=== PATIENT | male | born 1970 | race Caucasian/White ===

== ENCOUNTER → 2018-12-04 08:12 | Outpatient (CLI) | payer OTHER, SELFPAY ==
[2018-12-04 09:25] LABS: Alanine Aminotransferase 42 IU/L (21-72); Albumin 4.5 g/dL (3.5-5.0); Albumin Globulin Ratio 1.4 (1.0-2.8); Alkaline Phosphatase 53 U/L (38-126); Aspartate Aminotransferase 31 IU/L (17-59); BUN Creatinine Ratio 12.7 (6-22); Bilirubin Total 0.6 mg/dL (0.2-1.3); Blood Urea Nitrogen 14 mg/dL (9-20); Calcium 9.5 mg/dL (8.4-10.2); Carbon Dioxide 31 mmol/L (22-32); Chloride 100 mmol/L (98-107); Cholesterol 259 mg/dL (140-199); Estimated Glomerular Filt Rate > 60.0 mL/min (>60); Globulin 3.2 g/dL (1.7-4.1); Glucose 105 mg/dL (70-100); HDL Cholesterol 34 mg/dL (40-60); HEMOLYSIS < 15 (0-50); LDL Cholesterol Calculated 192 mg/dL (<100); Potassium 4.1 mmol/L (3.4-5.1); Sodium 140 mmol/L (137-145); Total Protein 7.7 g/dL (6.3-8.2); Triglycerides 166 mg/dL (35-150)
[2018-12-04 09:46] LABS: Free T4, Direct Thyroxine 1.18 ng/dL (0.78-2.19)
[2018-12-04 10:00] LABS: Thyroid Stimulating Hormone 2.83 uIU/mL (0.47-4.68)
== END ==
PROVIDERS: Family Provider Internal Medicine; PCP Internal Medicine; Visit Provider Internal Medicine
DX: E03.9 Hypothyroidism, unspecified (principal); E78.2 Mixed hyperlipidemia; I10 Essential (primary) hypertension
CPT/HCPCS: 36415; 80053; 80061; 84439; 84443

== ENCOUNTER → 2020-01-21 10:14 | Outpatient (CLI) | payer OTHER, SELFPAY ==
[2020-01-21 10:47] LABS: Add Manual Diff / Slide Review NO; Basophils Absolute Auto 0 /uL (0-100); Basophils Percent Auto 0.9 % (0-2); Eosinophils Absolute Auto 100 /uL (0-450); Eosinophils Percent Auto 2.7 % (2-4); Hematocrit 44.6 % (41-53); Hemoglobin 15.4 g/dL (13.5-17.5); Lymphocytes Absolute Auto 2100 /uL (1100-4500); Lymphocytes Percent Auto 44.8 % (25-40); Mean Corpuscular HGB Conc 34.4 % (30-36); Mean Corpuscular Hemoglobin 30.2 PG (26-34); Mean Corpuscular Volume 87.5 fL (80-100); Monocytes Absolute Auto 400 /uL (0-900); Monocytes Percent Auto 8.6 % (3-14); Neutrophils Absolute Auto 2000 /uL (1500-7000); Platelet Count 248 X10^3/uL (150-400); Red Cell Distribution Width 13.7 % (11.6-14.8); White Blood Cell Count 4.6 X10^3/uL (4.5-11.0)
[2020-01-21 10:57] LABS: Erythrocyte Sedimentation Rate 5 MM/HR (0-15)
[2020-01-21 11:22] LABS: Alanine Aminotransferase 46 IU/L (<50); Albumin 4.6 g/dL (3.5-5.0); Albumin Globulin Ratio 1.3 (1.0-2.8); Alkaline Phosphatase 67 U/L (38-126); Aspartate Aminotransferase 37 IU/L (17-59); BUN Creatinine Ratio 23.1 (6-22); Bilirubin Total 0.8 mg/dL (0.2-1.3); Blood Urea Nitrogen 18 mg/dL (9-20); Calcium 9.9 mg/dL (8.4-10.2); Carbon Dioxide 25 mmol/L (22-32); Chloride 104 mmol/L (98-107); Creatine Kinase 102 U/L (55-170); Estimated Glomerular Filt Rate > 60.0 mL/min (>60); Globulin 3.6 g/dL (1.7-4.1); Glucose 140 mg/dL (70-100); Potassium 4.5 mmol/L (3.4-5.1); Sodium 136 mmol/L (137-145); Total Protein 8.2 g/dL (6.3-8.2)
[2020-01-21 11:23] LABS: HEMOLYSIS < 15 (0-50)
[2020-01-21 12:46] LABS: Free T4, Direct Thyroxine 1.01 ng/dL (0.78-2.19)
[2020-01-21 13:00] LABS: Thyroid Stimulating Hormone 2.87 uIU/mL (0.47-4.68)
[2020-01-21 13:37] LABS: Folate > 20.0 ng/mL (2.76-20.0); Vitamin B12 506 pg/mL (239-931)
[2020-01-21 13:51] LABS: C-Reactive Protein Quant 0.7 mg/dL (<1.0)
[2020-01-23 13:08] LABS: ANA Screen, IFA Positive (.)
[2020-01-30 08:07] LABS: Acetylcholine Blocking AB 16 % (0-25); Acetylcholine Modulating AB <12 % (0-20); Acetylcholine Receptor Bind AB <0.03 nmol/L (0.00-0.24)
== END ==
PROVIDERS: Family Provider Internal Medicine; PCP Internal Medicine; Referring Provider Internal Medicine; Visit Provider Internal Medicine
DX: E03.9 Hypothyroidism, unspecified (principal); I10 Essential (primary) hypertension; M79.10 Myalgia, unspecified site; R53.1 Weakness; R60.9 Edema, unspecified
CPT/HCPCS: 36415; 80053; 82550; 82607; 82746; 83519; 84439; 84443; 85025; 85651; 86038; 86140

== ENCOUNTER → 2021-04-13 08:00 | Outpatient (CLI) | payer OTHER, SELFPAY ==
[2021-04-13 09:05] LABS: Alanine Aminotransferase 27 IU/L (<50); Albumin 4.1 g/dL (3.5-5.0); Albumin Globulin Ratio 1.6 (1.0-2.8); Alkaline Phosphatase 59 U/L (38-126); Aspartate Aminotransferase 26 IU/L (17-59); BUN Creatinine Ratio 24.4 (6-22); Bilirubin Total 0.7 mg/dL (0.2-1.3); Blood Urea Nitrogen 19 mg/dL (9-20); Calcium 9.6 mg/dL (8.4-10.2); Carbon Dioxide 26 mmol/L (22-32); Chloride 104 mmol/L (98-107); Cholesterol 285 mg/dL (140-199); Estimated Glomerular Filt Rate > 60.0 mL/min (>60); Globulin 2.6 g/dL (1.7-4.1); Glucose 105 mg/dL (70-100); HDL Cholesterol 40 mg/dL (40-60); HEMOLYSIS < 15 (0-50); LDL Cholesterol Calculated 203 mg/dL (<100); Potassium 4.8 mmol/L (3.4-5.1); Sodium 138 mmol/L (137-145); Total Protein 6.7 g/dL (6.3-8.2); Triglycerides 211 mg/dL (35-150)
[2021-04-13 09:21] LABS: Free T4, Direct Thyroxine 1.06 ng/dL (0.78-2.19)
[2021-04-13 09:35] LABS: Prostate Specific Antigen Scrn 1.54 ng/mL (0.1-4.0); Thyroid Stimulating Hormone 3.31 uIU/mL (0.47-4.68)
== END ==
PROVIDERS: Family Provider Internal Medicine; PCP Internal Medicine; Referring Provider Internal Medicine; Visit Provider Internal Medicine
DX: E03.9 Hypothyroidism, unspecified (principal); E78.2 Mixed hyperlipidemia; I10 Essential (primary) hypertension; Z12.5 Encounter for screening for malignant neoplasm of prostate
CPT/HCPCS: 36415; 80053; 80061; 84439; 84443; G0103

== ENCOUNTER → 2021-05-27 15:02 | Outpatient (CLI) | payer OTHER, SELFPAY ==
[2021-05-27 15:27] LABS: COVID19 -Nasal RAPID Negative (Negative)
== END ==
PROVIDERS: Family Provider Internal Medicine; PCP Internal Medicine; Visit Provider Physician Assistant
DX: Z20.822 Contact with and (suspected) exposure to COVID-19 (principal); R05 Cough; R09.81 Nasal congestion; R51.9 Headache, unspecified
CPT/HCPCS: 87635

== ENCOUNTER 2021-06-04 09:00 | Outpatient (RCR) | payer OTHER, SELFPAY ==
--- NOTE | 2021-04-15 16:44 | PT.OIE ---
Current Diagnoses Pain in left shoulder (04/15/21) Abnormal posture (04/15/21) Weakness (04/15/21) Past Medical History (Last Updated 11/20/18 @ 09:33 by Hugh Valdez MD) Acquired hypothyroidism Alcohol use disorder Essential hypertension Generalized anxiety disorder (12/02/16) Major depression in complete remission Mixed hyperlipidemia Peripheral edema (05/07/13) Past Surgical History (Last Updated 03/19/21 @ 10:36 by Hugh Valdez MD) S/P lumbar spinal fusion Visit Care Team Role Provider Type Hugh Valdez MD Attending Provider Physician Family Provider Primary Care Provider Referring Provider Specialty: Internal Medicine Address: [address] [place] [address], [address], [facility] Email: [email or web address] Physical Therapy Initial Evaluation PT-OP-A Visit Information Start: 04/14/21 13:55 Freq: Status: Active Protocol: Document 04/15/21 10:30 [facility] (Rec: 04/15/21 11:20 [facility] [id number]) Out-Patient Physical Therapy Visit Information Visit Information Visit Type Initial Evaluation Visit Start Time 10:35 Visit Stop Time 11:20 Total Visit Minutes 45 Visit Number 1 Number of JOB PRINTER Visits 0 PT-OP-B Current Condition Start: 04/14/21 13:55 Freq: Status: Active Protocol: Document 04/15/21 10:30 [facility] (Rec: 04/15/21 11:20 [facility] [id number]) Current Condition History of Current Condition Onset Date 6 months ago Current Complaints L shoulder History of Current Condition Pt reprots he has nver had trouble with his shoulder before then a week after his 1st COVID shot in Nov, he noticed it was painful when lifting weights and it has just gotten worse. Now his ROM is very restricted and has not been doing much. Pt is R handed. Pt notes he does a lot of things still but there is pain. ANything reaching out in front of him or overhead is painful. Pt reports his UT is pretty painful as well. Pt typically would golf a couple times a year but feels like there is no way he could do that. Prior Treatments and Tests none Treatment Goals Patient/Caregiver Goals return to wt lifting, back to where he was , be able to golf , be able to overhead and reaching activities especially house work (has to paint house and build deck) Personal Factors Other Personal Factors That May Effect neck pain, L4-5 fusion Therapy/Recovery PT-OP-C Subjective Start: 04/14/21 13:55 Freq: Status: Active Protocol: Document 04/15/21 10:30 [facility] (Rec: 04/15/21 11:20 [facility] [id number]) Patient Questionnaires Quick Dash- Upper Extremity Quick Dash UE Score 43.18 OP-PT Pain Assessment Location L shoulder Pain Location Details ant lat brachium & deep in socket , UT Intensity 4 Scale Used worst 10/10 Description Aching,Sharp,Tightness,With Movement Description- Other deep Frequency Constant Pain Duration really intense for 30 sec to min after movement Variations/Patterns pain in thumb region sometimes that feels related Other Pain Aggravating Factors getting dressed, reaching up, fwd,out,behind, lifting up Pain Alleviating Factors Cold Other Pain Alleviating Factors ibuprofen PT-OP-F Manual Assessment Start: 04/14/21 13:55 Freq: Status: Active Protocol: Document 04/15/21 10:30 [facility] (Rec: 04/15/21 11:20 [facility] [id number]) Manual Assessments Soft Tissue Assessment Soft Tissue Mobility Assessment L UT, LS, rhomboids LT, teres, infraspinatus, lats, pec tender & tight Joint Mobility Assessment Joint Mobility Assessment L 1st rib elevated PT-OP-J Posture/Palpation/Skin Start: 04/14/21 13:55 Freq: Status: Active Protocol: Document 04/15/21 10:30 [facility] (Rec: 04/15/21 11:20 [facility] [id number]) Posture Evaluation [facility] Postural Classification System [facility] Postural Classifications Posterior/Anterior Elbow Flexion Test 1 Comments Posture Comments L>R scap protraction, IR of shoulder & fwd rounding PT-OP-K Range of Motion Start: 04/14/21 13:55 Freq: Status: Active Protocol: Document 04/15/21 10:30 [facility] (Rec: 04/15/21 11:20 [facility] [id number]) Shoulder Goniometric Range of Motion Shoulder Left Passive Flexion 130 Abduction 82 External Rotation at 45 degrees 42 Abduction Internal Rotation 70 Comments IR at scap plane Right Active Flexion 155 Extension 70 Abduction 180 External Rotation at 90 degrees 121 Abduction External Rotation at 0 degrees Abduction 60 Internal Rotation Behind Back (text) T7 Left Active Flexion 74 Extension 44 Abduction 65 External Rotation at 0 degrees Abduction 31 Internal Rotation Behind Back (text) sacrum PT-OP-L Special Tests Start: 04/14/21 13:55 Freq: Status: Active Protocol: Document 04/15/21 10:30 [facility] (Rec: 04/15/21 11:20 [facility] [id number]) Special Tests Shoulder Special Tests Empty Can Test Results positive L Neer Impingement Comments positive L Speed's Biceps Test Results positive L [place] Test Test Results neg L Yergason's Biceps Test Results neg L Sulcus Test Results neg L Garcia Sunday Impingement Test Results positive L AC Joint Compression Test Results neg L Neural Special Tests- Upper Body Median Nerve Tension Comments neg but unable to go through full range d/t shoulder mobility Radial Nerve Tension Comments neg Ulnar Nerve Tension Comments neg PT-OP-M Strength Start: 04/14/21 13:55 Freq: Status: Active Protocol: Document 04/15/21 10:30 [facility] (Rec: 04/15/21 11:20 [facility] [id number]) Shoulder Strength Shoulder Manual Muscle Testing Right Flexion 5 Normal Extension 5 Normal Abduction (C5) 5 Normal Adduction 5 Normal External Rotation 5 Normal Internal Rotation 5 Normal Horizontal Abduction 5 Normal Horizontal Adduction 5 Normal Left Flexion 3+ Fair+ Extension 3+ Fair+ Abduction (C5) 2- Poor- External Rotation 4- Good- Internal Rotation 5 Normal Comments pain w/all but IR PT-OP-Q Treatments Start: 04/14/21 13:55 Freq: Status: Active Protocol: Document 04/15/21 10:30 [facility] (Rec: 04/15/21 13:05 [facility] [id number]) Therapeutic Exercises Sitting Exercises retraction Sitting Exercise Name scap scap/dep Side bilateral Reps/Minutes 10 Standing Exercises wall posture Standing Exercise Name wall roll up w/focus on neutral lumbar spine w/B shoudler ext to wall Reps/Minutes 1 min Self-Care/Home Management Treatment Education Other Education edu re: anatomy of shoulder and shoulder mechanics. Discussed impingement vs possible frozen shoulder and prognosis. DIscussed importance of posture and scap & thoracic positioning. PT-OP-T Assessment and Plan Start: 04/14/21 13:55 Freq: Status: Active Protocol: Document 04/15/21 10:30 [facility] (Rec: 04/15/21 11:20 [facility] [id number]) Physical Therapy Assessment Rehab Potential Rehabilitation Potential Good Evaluation Complexity Number of Personal Factors/Comorbidities 1-2 Number of Body Systems Impaired 4 or More Clinical Presentation at Evaluation Evolving Impairments Impairments Activity Tolerance,Functional Activities,Functional Mobility ,Pain,Posture,ROM,Soft Tissue Mobility,Strength Goals activities Short Term Goal (STG) pt will be able to get dressed without increased pain STG Duration 05/15/21 Setter Out Goal (LTG) Pt will be able to return to full lifting program along with 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 LTG Duration 06/15/21 ROM Short Term Goal (STG) Pt will improve AROM on L side in all planes by 15 deg to allow for greater ease w/ADLs. STG Duration 05/15/21 Group Home Goal (LTG) Pt will have full AROM of L shoulder without pain in order to allow pt to return to all typical activities without pain. LTG Duration 06/15/21 strength Short Term Goal (STG) Pt will be indep with HEP. STG Duration 05/15/21 Group Home Goal (LTG) Pt will score at 5/5 w/EFT and w/all shoulder MMT in order to show improved ability to do ADLs & house work. LTG Duration 06/15/21 Quick DASH Impairment 43.18 Short Term Goal (STG) Pt will improve quick DASH score to no higher than 25 to show improved functional ability. STG Duration 05/15/21 Group Home Goal (LTG) Pt will improve quick DASH score to no higher than 5 to show improved functional ability. LTG Duration 06/15/21 Assessment Summary Assessment Pt presents with L shoulder pain starting about 6 months ago around time of 1st COVID shot. He is unsure if it is fully correlated, but had soreness from shot that never went away w/progressive difficulty w/overhead mobility w/L shoulder. W/PROM, pt has empty end feel as he reports pain before stiff or hard end feel is felt, which makes it less likely that pt has adhesive capsulitis, but does show positive with multiple impingement tests and w/empty can testing, indicating possible L shoulder impingement syndrome. He has excessive elevation of scap with movement and signficiant pain w/overhead mobility being the largest limit. He has protracted and fwd rounded shoulder position and was educated on importance of imrpving this as it can be a major contributitor to pain. He would benefit from skilled PT to work on progressive ROM, strengthening and functional mobility exercises along w/ manual treatment and modalities to dec pain and improve function. Physical Therapy Plan Frequency and Duration Frequency of Treatment 1-2x/week Duration of Treatment 2 months Plan of Care Start Date 04/15/21 Plan of Care End Date 06/15/21 Therapeutic Interventions Therapeutic Interventions Aquatic Therapy,Home Exercise Program,Joint Mobilizations, Manual Therapy,Neuromuscular Re-education,Patient/Caregiver Education,Self-Care/Home Management,Soft Tissue Mobilization,Taping, Therapeutic Activities, Therapeutic Exercises Modalities Cold Pack/Ice Massage,Electric Stimulation,Hot Packs, Infrared Therapy,Ultrasound Next Visit Focus/Plan Next Note Type Treatment Note Next Visit Plan Shoulder rows, REYNALDOOM w/estefania, tbar, [facility] to L UT, LS, pec, GH & scap jt mobs
--- NOTE | 2021-04-15 16:44 | PT.OPPOC ---
Physical, Occupational & Speech Therapy At [facility] Current Diagnoses Pain in left shoulder (04/15/21) Abnormal posture (04/15/21) Weakness (04/15/21) Visit Care Team Role Provider Type Hugh Valdez MD Attending Provider Physician Family Provider Primary Care Provider Referring Provider Specialty: Internal Medicine Address: [address] [place] [address], [address], [facility] Email: [email or web address] Plan Of Care PT-OP-T Assessment and Plan Start: 04/14/21 13:55 Freq: Status: Active Protocol: Document 04/15/21 10:30 [facility] (Rec: 04/15/21 11:20 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 LTG Duration 06/15/21 ROM Short Term Goal (STG) Pt will improve AROM on L side in all planes by 15 deg to allow for greater ease w/ADLs. STG Duration 05/15/21 Skilled Nursing Goal (LTG) Pt will have full AROM of L shoulder without pain in order to allow pt to return to all typical activities without pain. LTG Duration 06/15/21 strength Short Term Goal (STG) Pt will be indep with HEP. STG Duration 05/15/21 Skilled Nursing Goal (LTG) Pt will score at 5/5 w/EFT and w/all shoulder MMT in order to show improved ability to do ADLs & house work. LTG Duration 06/15/21 Quick DASH Impairment 43.18 Short Term Goal (STG) Pt will improve quick DASH score to no higher than 25 to show improved functional ability. STG Duration 05/15/21 Gatehouse Attendant Goal (LTG) Pt will improve quick DASH score to no higher than 5 to show improved functional ability. LTG Duration 06/15/21 Assessment Summary Assessment Pt presents with L shoulder pain starting about 6 months ago around time of 1st COVID shot. He is unsure if it is fully correlated, but had soreness from shot that never went away w/progressive difficulty w/overhead mobility w/L shoulder. W/PROM, pt has empty end feel as he reports pain before stiff or hard end feel is felt, which makes it less likely that pt has adhesive capsulitis, but does show positive with multiple impingement tests and w/empty can testing, indicating possible L shoulder impingement syndrome. He has excessive elevation of scap with movement and signficiant pain w/overhead mobility being the largest limit. He has protracted and fwd rounded shoulder position and was educated on importance of imrpving this as it can be a major contributitor to pain. He would benefit from skilled PT to work on progressive ROM, strengthening and functional mobility exercises along w/ manual treatment and modalities to dec pain and improve function. Physical Therapy Plan Frequency and Duration Frequency of Treatment 1-2x/week Duration of Treatment 2 months Plan of Care Start Date 04/15/21 Plan of Care End Date 06/15/21 Therapeutic Interventions Therapeutic Interventions Aquatic Therapy,Home Exercise Program,Joint Mobilizations, Manual Therapy,Neuromuscular Re-education,Patient/Caregiver Education,Self-Care/Home Management,Soft Tissue Mobilization,Taping, Therapeutic Activities, Therapeutic Exercises Modalities Cold Pack/Ice Massage,Electric Stimulation,Hot Packs, Infrared Therapy,Ultrasound Next Visit Focus/Plan Next Note Type Treatment Note Next Visit Plan Shoulder rows, AAROM w/pully, tbar, [facility] to L UT, LS, pec, GH & scap jt mobs Plan of Care Dates Plan of Care Start Date 04/15/21 Plan of Care End Date 06/15/21 Electronically Signed by: Anupama Rojo, PT 04/15/21 [id number] Please Sign and Return: I have reviewed this Plan of Care and certify that the skilled therapy services above are required to meet the patient?s needs. Physician Signature Date Printed Name and Credentials Clinical Instructor Signature Printed Name and Credentials
--- NOTE | 2021-04-19 18:34 | PT.OTN ---
Current Diagnoses Pain in left shoulder (04/19/21) Abnormal posture (04/19/21) Weakness (04/19/21) Physical Therapy Treatment Note PT-OP-A Visit Information Start: 04/14/21 13:55 Freq: Status: Active Protocol: Document 04/19/21 16:48 [facility] (Rec: 04/19/21 18:33 [facility] [id number]) Out-Patient Physical Therapy Visit Information Visit Information Visit Type Treatment Note Visit Start Time 16:52 Visit Stop Time 17:39 Total Visit Minutes 47 Visit Number 2 Number of TROMMEL TENDER Visits 0 PT-OP-B Current Condition Start: 04/14/21 13:55 Freq: Status: Active Protocol: Document 04/15/21 10:30 [facility] (Rec: 04/15/21 11:20 [facility] [id number]) Current Condition History of Current Condition Onset Date 6 months ago Current Complaints L shoulder History of Current Condition Pt reprots he has nver had trouble with his shoulder before then a week after his 1st COVID shot in Nov, he noticed it was painful when lifting weights and it has just gotten worse. Now his ROM is very restricted and has not been doing much. Pt is R handed. Pt notes he does a lot of things still but there is pain. ANything reaching out in front of him or overhead is painful. Pt reports his UT is pretty painful as well. Pt typically would golf a couple times a year but feels like there is no way he could do that. Prior Treatments and Tests none Treatment Goals Patient/Caregiver Goals return to wt lifting, back to where he was , be able to golf , be able to overhead and reaching activities especially house work (has to paint house and build deck) Personal Factors Other Personal Factors That May Effect neck pain, L4-5 fusion Therapy/Recovery PT-OP-C Subjective Start: 04/14/21 13:55 Freq: Status: Active Protocol: Document 04/19/21 16:48 [facility] (Rec: 04/19/21 18:33 [facility] [id number]) OP-PT Subjective Patient Comments Patient Comments compliance w/ exercises Patient Reported Progress Same PT-OP-F Manual Assessment Start: 04/14/21 13:55 Freq: Status: Active Protocol: Document 04/15/21 10:30 [facility] (Rec: 04/15/21 11:20 [facility] [id number]) Manual Assessments Soft Tissue Assessment Soft Tissue Mobility Assessment L UT, LS, rhomboids LT, teres, infraspinatus, lats, pec tender & tight Joint Mobility Assessment Joint Mobility Assessment L 1st rib elevated PT-OP-J Posture/Palpation/Skin Start: 04/14/21 13:55 Freq: Status: Active Protocol: Document 04/15/21 10:30 [facility] (Rec: 04/15/21 11:20 [facility] [id number]) Posture Evaluation [facility] Postural Classification System [facility] Postural Classifications Posterior/Anterior Elbow Flexion Test 1 Comments Posture Comments L>R scap protraction, IR of shoulder & fwd rounding PT-OP-K Range of Motion Start: 04/14/21 13:55 Freq: Status: Active Protocol: Document 04/15/21 10:30 [facility] (Rec: 04/15/21 11:20 [facility] [id number]) Shoulder Goniometric Range of Motion Shoulder Left Passive Flexion 130 Abduction 82 External Rotation at 45 degrees 42 Abduction Internal Rotation 70 Comments IR at scap plane Right Active Flexion 155 Extension 70 Abduction 180 External Rotation at 90 degrees 121 Abduction External Rotation at 0 degrees Abduction 60 Internal Rotation Behind Back (text) T7 Left Active Flexion 74 Extension 44 Abduction 65 External Rotation at 0 degrees Abduction 31 Internal Rotation Behind Back (text) sacrum PT-OP-L Special Tests Start: 04/14/21 13:55 Freq: Status: Active Protocol: Document 04/15/21 10:30 [facility] (Rec: 04/15/21 11:20 [facility] [id number]) Special Tests Shoulder Special Tests Empty Can Test Results positive L Neer Impingement Comments positive L Speed's Biceps Test Results positive L [place] Test Test Results neg L Yergason's Biceps Test Results neg L Sulcus Test Results neg L Garcia Sunday Impingement Test Results positive L AC Joint Compression Test Results neg L Neural Special Tests- Upper Body Median Nerve Tension Comments neg but unable to go through full range d/t shoulder mobility Radial Nerve Tension Comments neg Ulnar Nerve Tension Comments neg PT-OP-M Strength Start: 04/14/21 13:55 Freq: Status: Active Protocol: Document 04/15/21 10:30 [facility] (Rec: 04/15/21 11:20 [facility] [id number]) Shoulder Strength Shoulder Manual Muscle Testing Right Flexion 5 Normal Extension 5 Normal Abduction (C5) 5 Normal Adduction 5 Normal External Rotation 5 Normal Internal Rotation 5 Normal Horizontal Abduction 5 Normal Horizontal Adduction 5 Normal Left Flexion 3+ Fair+ Extension 3+ Fair+ Abduction (C5) 2- Poor- External Rotation 4- Good- Internal Rotation 5 Normal Comments pain w/all but IR PT-OP-Q Treatments Start: 04/14/21 13:55 Freq: Status: Active Protocol: Document 04/19/21 16:48 [facility] (Rec: 04/19/21 18:33 [facility] [id number]) Therapeutic Exercises Supine Exercises AAROm Supine Exercise Name tbar: 1.chest press to flex 2. ER at side Side left Reps/Minutes 10 ea Sitting Exercises pullys Sitting Exercise Name flex, scaption, abd Side left Reps/Minutes 15 Comments AAROM retraction Sitting Exercise Name scap scap/dep Side bilateral Reps/Minutes 10 Standing Exercises walk aways Standing Exercise Name 1.flex & abd from counter 2. ER at wall Side left Reps/Minutes 5 sec x6 ea wall posture Standing Exercise Name wall roll up w/focus on neutral lumbar spine w/B shoudler ext to wall Reps/Minutes 1 min Manual Therapy Treatment Soft Tissue Mobilization UT Body Location L UT, LS, scalenes Mobilization Type Rolling,Strumming Intensity/Depth Moderate pec Body Location L Mobilization Type Rolling,Strumming Intensity/Depth Moderate Body Position Supine Joint Mobilizations GH Joint L Direction post glide, inf glide, distraction FM PT-OP-T Assessment and Plan Start: 04/14/21 13:55 Freq: Status: Active Protocol: Document 04/19/21 16:48 [facility] (Rec: 04/19/21 18:33 [facility] [id number]) Physical Therapy Assessment Goals activities Short Term Goal (STG) pt will be able to get dressed without increased pain STG Duration 05/15/21 Care Home Goal (LTG) Pt will be able to return to full lifting program along with 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 LTG Duration 06/15/21 ROM Short Term Goal (STG) Pt will improve AROM on L side in all planes by 15 deg to allow for greater ease w/ADLs. STG Duration 05/15/21 Care Home Goal (LTG) Pt will have full AROM of L shoulder without pain in order to allow pt to return to all typical activities without pain. LTG Duration 06/15/21 strength Short Term Goal (STG) Pt will be indep with HEP. STG Duration 05/15/21 Morning News Anchor Goal (LTG) Pt will score at 5/5 w/EFT and w/all shoulder MMT in order to show improved ability to do ADLs & house work. LTG Duration 06/15/21 Quick DASH Impairment 43.18 Short Term Goal (STG) Pt will improve quick DASH score to no higher than 25 to show improved functional ability. STG Duration 05/15/21 Care Home Goal (LTG) Pt will improve quick DASH score to no higher than 5 to show improved functional ability. LTG Duration 06/15/21 Assessment Summary Assessment Pt was showing about 135 deg AAROM with walk aways and still has empty end feel with range of motion which dec likelihood of adhesive capsulitis. He tolerated pully and walk away exercseis more than tbar exercises and was given all exercises as options to work on ROM ane encouraged to do 2x/day along w/ice after exercises to dec irritation. Physical Therapy Plan Frequency and Duration Frequency of Treatment 1-2x/week Duration of Treatment 2 months Plan of Care Start Date 04/15/21 Plan of Care End Date 06/15/21 Next Visit Focus/Plan Next Note Type Treatment Note Next Visit Plan review exercies. shoulder rows , try UBE, manual for soft tissue, GH & AC & scap joint mobs
--- NOTE | 2021-04-27 10:40 | PT.OTN ---
Current Diagnoses Pain in left shoulder (04/27/21) Abnormal posture (04/27/21) Weakness (04/27/21) Physical Therapy Treatment Note PT-OP-A Visit Information Start: 04/14/21 13:55 Freq: Status: Active Protocol: Document 04/27/21 09:00 OF (Rec: 04/27/21 10:40 OF [email or web address]) Out-Patient Physical Therapy Visit Information Visit Information Visit Type Treatment Note Visit Start Time 08:15 Visit Stop Time 09:00 Total Visit Minutes 45 Visit Number 3 Precautions Precautions 50$ copay PT-OP-B Current Condition Start: 04/14/21 13:55 Freq: Status: Active Protocol: Document 04/15/21 10:30 [facility] (Rec: 04/15/21 11:20 [facility] [id number]) Current Condition History of Current Condition Onset Date 6 months ago Current Complaints L shoulder History of Current Condition Pt reprots he has nver had trouble with his shoulder before then a week after his 1st COVID shot in Nov, he noticed it was painful when lifting weights and it has just gotten worse. Now his ROM is very restricted and has not been doing much. Pt is R handed. Pt notes he does a lot of things still but there is pain. ANything reaching out in front of him or overhead is painful. Pt reports his UT is pretty painful as well. Pt typically would golf a couple times a year but feels like there is no way he could do that. Prior Treatments and Tests none Treatment Goals Patient/Caregiver Goals return to wt lifting, back to where he was , be able to golf , be able to overhead and reaching activities especially house work (has to paint house and build deck) Personal Factors Other Personal Factors That May Effect neck pain, L4-5 fusion Therapy/Recovery PT-OP-C Subjective Start: 04/14/21 13:55 Freq: Status: Active Protocol: Document 04/27/21 09:00 OF (Rec: 04/27/21 10:40 OF [email or web address]) OP-PT Subjective Patient Comments Patient Comments pt states pain has lessened, shldr continues to feel tight Patient Reported Progress Improving OP-PT Pain Assessment Pain Assessment Grid Paper Pain Assessment Grid Completed No Location L shoulder Pain Location Details deep in socket , UT Intensity 4 Scale Used worst 10/10 Description Aching,Sharp,Tightness,With Movement Description- Other deep Frequency Daily Pain Duration really intense for 30 sec to min after movement Other Pain Aggravating Factors getting dressed, reaching up, fwd,out,behind, lifting up Pain Alleviating Factors Cold Other Pain Alleviating Factors ibuprofen PT-OP-F Manual Assessment Start: 04/14/21 13:55 Freq: Status: Active Protocol: Document 04/15/21 10:30 [facility] (Rec: 04/15/21 11:20 [facility] [id number]) Manual Assessments Soft Tissue Assessment Soft Tissue Mobility Assessment L UT, LS, rhomboids LT, teres, infraspinatus, lats, pec tender & tight Joint Mobility Assessment Joint Mobility Assessment L 1st rib elevated PT-OP-J Posture/Palpation/Skin Start: 04/14/21 13:55 Freq: Status: Active Protocol: Document 04/15/21 10:30 [facility] (Rec: 04/15/21 11:20 [facility] [id number]) Posture Evaluation [facility] Postural Classification System [facility] Postural Classifications Posterior/Anterior Elbow Flexion Test 1 Comments Posture Comments L>R scap protraction, IR of shoulder & fwd rounding PT-OP-K Range of Motion Start: 04/14/21 13:55 Freq: Status: Active Protocol: Document 04/15/21 10:30 [facility] (Rec: 04/15/21 11:20 [facility] [id number]) Shoulder Goniometric Range of Motion Shoulder Left Passive Flexion 130 Abduction 82 External Rotation at 45 degrees 42 Abduction Internal Rotation 70 Comments IR at scap plane Right Active Flexion 155 Extension 70 Abduction 180 External Rotation at 90 degrees 121 Abduction External Rotation at 0 degrees Abduction 60 Internal Rotation Behind Back (text) T7 Left Active Flexion 74 Extension 44 Abduction 65 External Rotation at 0 degrees Abduction 31 Internal Rotation Behind Back (text) sacrum PT-OP-L Special Tests Start: 04/14/21 13:55 Freq: Status: Active Protocol: Document 04/15/21 10:30 [facility] (Rec: 04/15/21 11:20 [facility] [id number]) Special Tests Shoulder Special Tests Empty Can Test Results positive L Neer Impingement Comments positive L Speed's Biceps Test Results positive L [place] Test Test Results neg L Yergason's Biceps Test Results neg L Sulcus Test Results neg L Garcia Sunday Impingement Test Results positive L AC Joint Compression Test Results neg L Neural Special Tests- Upper Body Median Nerve Tension Comments neg but unable to go through full range d/t shoulder mobility Radial Nerve Tension Comments neg Ulnar Nerve Tension Comments neg PT-OP-M Strength Start: 04/14/21 13:55 Freq: Status: Active Protocol: Document 04/15/21 10:30 [facility] (Rec: 04/15/21 11:20 [facility] [id number]) Shoulder Strength Shoulder Manual Muscle Testing Right Flexion 5 Normal Extension 5 Normal Abduction (C5) 5 Normal Adduction 5 Normal External Rotation 5 Normal Internal Rotation 5 Normal Horizontal Abduction 5 Normal Horizontal Adduction 5 Normal Left Flexion 3+ Fair+ Extension 3+ Fair+ Abduction (C5) 2- Poor- External Rotation 4- Good- Internal Rotation 5 Normal Comments pain w/all but IR PT-OP-Q Treatments Start: 04/14/21 13:55 Freq: Status: Active Protocol: Document 04/27/21 09:00 OF (Rec: 04/27/21 10:40 OF [email or web address]) Therapeutic Exercises Supine Exercises AAROm Supine Exercise Name tbar: 1.chest press to flex 2. ER at side Side left Reps/Minutes 2x10 Sitting Exercises UT Sitting Exercise Name upper trap stretch Side bilateral Reps/Minutes [id number] rows Sitting Exercise Name rows Side bilateral Resistance level 2 tb Comments 3x10, cues for UT relaxed, proper recruitment for lower trap and rhomboids pullys Sitting Exercise Name flex, scaption, abd Side left Reps/Minutes 2x15 Comments AAROM retraction Sitting Exercise Name scap scap/dep Side bilateral Reps/Minutes 10 Standing Exercises walk aways Standing Exercise Name 1.flex & abd from counter 2. ER at wall Side left Reps/Minutes 5 sec x6 ea Manual Therapy Treatment Soft Tissue Mobilization UT Body Location L UT, LS, scalenes Mobilization Type Rolling,Strumming Intensity/Depth Moderate pec Body Location L Mobilization Type Rolling,Strumming Intensity/Depth Moderate Body Position Supine Joint Mobilizations GH Joint L Direction post glide, inf glide, distraction FM Grade II Body Position Supine Self-Care/Home Management Treatment Education Patient Education Body Mechanics,Home Exercise Program,Pain Management PT-OP-T Assessment and Plan Start: 04/14/21 13:55 Freq: Status: Active Protocol: Document 04/27/21 09:00 OF (Rec: 04/27/21 10:40 OF [email or web address]) Physical Therapy Assessment Rehab Potential Rehabilitation Potential Good Evaluation Complexity Number of Personal Factors/Comorbidities 1-2 Number of Body Systems Impaired 1-2 Progress Towards Goals Progress Towards Goals Progressing Toward Goals Assessment Summary Assessment He tolerated pully and walk away exercises today. He reports HEP as instructed and is aware of adding rows, UT stretch
--- NOTE | 2021-05-03 16:38 | PT.OTN ---
Current Diagnoses Pain in left shoulder (05/03/21) Abnormal posture (05/03/21) Weakness (05/03/21) Physical Therapy Treatment Note PT-OP-A Visit Information Start: 04/14/21 13:55 Freq: Status: Active Protocol: Document 05/03/21 11:59 [facility] (Rec: 05/03/21 12:04 [facility] [email or web address]) Out-Patient Physical Therapy Visit Information Visit Information Visit Type Treatment Note Visit Start Time 08:18 Visit Stop Time 09:00 Total Visit Minutes 42 Visit Number 4 Number of BRONZE PLATER Visits 0 PT-OP-B Current Condition Start: 04/14/21 13:55 Freq: Status: Active Protocol: Document 04/15/21 10:30 [facility] (Rec: 04/15/21 11:20 [facility] [id number]) Current Condition History of Current Condition Onset Date 6 months ago Current Complaints L shoulder History of Current Condition Pt reprots he has nver had trouble with his shoulder before then a week after his 1st COVID shot in Nov, he noticed it was painful when lifting weights and it has just gotten worse. Now his ROM is very restricted and has not been doing much. Pt is R handed. Pt notes he does a lot of things still but there is pain. ANything reaching out in front of him or overhead is painful. Pt reports his UT is pretty painful as well. Pt typically would golf a couple times a year but feels like there is no way he could do that. Prior Treatments and Tests none Treatment Goals Patient/Caregiver Goals return to wt lifting, back to where he was , be able to golf , be able to overhead and reaching activities especially house work (has to paint house and build deck) Personal Factors Other Personal Factors That May Effect neck pain, L4-5 fusion Therapy/Recovery PT-OP-C Subjective Start: 04/14/21 13:55 Freq: Status: Active Protocol: Document 05/03/21 11:59 [facility] (Rec: 05/03/21 12:04 [facility] [email or web address]) OP-PT Subjective Patient Comments Patient Comments Pt reports he felt like he was doing better w/his shoulder but it got irritated the last couple days PT-OP-F Manual Assessment Start: 04/14/21 13:55 Freq: Status: Active Protocol: Document 04/15/21 10:30 [facility] (Rec: 04/15/21 11:20 [facility] [id number]) Manual Assessments Soft Tissue Assessment Soft Tissue Mobility Assessment L UT, LS, rhomboids LT, teres, infraspinatus, lats, pec tender & tight Joint Mobility Assessment Joint Mobility Assessment L 1st rib elevated PT-OP-J Posture/Palpation/Skin Start: 04/14/21 13:55 Freq: Status: Active Protocol: Document 04/15/21 10:30 [facility] (Rec: 04/15/21 11:20 [facility] [id number]) Posture Evaluation [facility] Postural Classification System [facility] Postural Classifications Posterior/Anterior Elbow Flexion Test 1 Comments Posture Comments L>R scap protraction, IR of shoulder & fwd rounding PT-OP-K Range of Motion Start: 04/14/21 13:55 Freq: Status: Active Protocol: Document 04/15/21 10:30 [facility] (Rec: 04/15/21 11:20 [facility] [id number]) Shoulder Goniometric Range of Motion Shoulder Left Passive Flexion 130 Abduction 82 External Rotation at 45 degrees 42 Abduction Internal Rotation 70 Comments IR at scap plane Right Active Flexion 155 Extension 70 Abduction 180 External Rotation at 90 degrees 121 Abduction External Rotation at 0 degrees Abduction 60 Internal Rotation Behind Back (text) T7 Left Active Flexion 74 Extension 44 Abduction 65 External Rotation at 0 degrees Abduction 31 Internal Rotation Behind Back (text) sacrum PT-OP-L Special Tests Start: 04/14/21 13:55 Freq: Status: Active Protocol: Document 04/15/21 10:30 [facility] (Rec: 04/15/21 11:20 [facility] [id number]) Special Tests Shoulder Special Tests Empty Can Test Results positive L Neer Impingement Comments positive L Speed's Biceps Test Results positive L [place] Test Test Results neg L Yergason's Biceps Test Results neg L Sulcus Test Results neg L Garcia Sunday Impingement Test Results positive L AC Joint Compression Test Results neg L Neural Special Tests- Upper Body Median Nerve Tension Comments neg but unable to go through full range d/t shoulder mobility Radial Nerve Tension Comments neg Ulnar Nerve Tension Comments neg PT-OP-M Strength Start: 04/14/21 13:55 Freq: Status: Active Protocol: Document 04/15/21 10:30 [facility] (Rec: 04/15/21 11:20 [facility] [id number]) Shoulder Strength Shoulder Manual Muscle Testing Right Flexion 5 Normal Extension 5 Normal Abduction (C5) 5 Normal Adduction 5 Normal External Rotation 5 Normal Internal Rotation 5 Normal Horizontal Abduction 5 Normal Horizontal Adduction 5 Normal Left Flexion 3+ Fair+ Extension 3+ Fair+ Abduction (C5) 2- Poor- External Rotation 4- Good- Internal Rotation 5 Normal Comments pain w/all but IR PT-OP-Q Treatments Start: 04/14/21 13:55 Freq: Status: Active Protocol: Document 05/03/21 11:59 [facility] (Rec: 05/03/21 12:04 [facility] [email or web address]) Therapeutic Exercises Sitting Exercises pullys Sitting Exercise Name flex, scaption, abd Side left Reps/Minutes 15 Comments AAROM Manual Therapy Treatment Soft Tissue Mobilization UT Body Location L UT, LS, scalenes Mobilization Type Rolling,Strumming Intensity/Depth Moderate Joint Mobilizations ribs Comments 1. 1st rib inf glide L FM 2. rib 5 inf glide FM w/ant elevation/post dep AC Joint gapping FM L GH Joint L Direction post glide, inf glide, distraction FM Grade II Body Position Supine Neuro Re-Education Treatment Other Activities PNF Details post dep Comments 1. rhythmic initiation L 2. sustained holds scap progressed to w/UE 3. 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 LTG Duration 06/15/21 ROM Short Term Goal (STG) Pt will improve AROM on L side in all planes by 15 deg to allow for greater ease w/ADLs. STG Duration 05/15/21 [facility] Goal (LTG) Pt will have full AROM of L shoulder without pain in order to allow pt to return to all typical activities without pain. LTG Duration 06/15/21 strength Short Term Goal (STG) Pt will be indep with HEP. STG Duration 05/15/21 [employer] Goal (LTG) Pt will score at 5/5 w/EFT and w/all shoulder MMT in order to show improved ability to do ADLs & house work. LTG Duration 06/15/21 Quick DASH Impairment 43.18 Short Term Goal (STG) Pt will improve quick DASH score to no higher than 25 to show improved functional ability. STG Duration 05/15/21 [employer]amic [employer] Goal (LTG) Pt will improve quick DASH score to no higher than 5 to show improved functional ability. LTG Duration 06/15/21 Assessment Summary Assessment Pt is showing some improvement in motion and it imrpvoes with manual treatment. he did have significant tightness in scalenes today that were very pianful to touch but had improved post dep after manual treatmetn of this along w/ joint mobilizations. Physical Therapy Plan Frequency and Duration Frequency of Treatment 1-2x/week Duration of Treatment 2 months Plan of Care Start Date 04/15/21 Plan of Care End Date 06/15/21 Next Visit Focus/Plan Next Note Type Treatment Note Next Visit Plan UE & manual for mobility & PNF , foam roll for opening, prop assessment of scap & ribcage mobility
--- NOTE | 2021-05-14 09:50 | PT.OTN ---
Current Diagnoses Pain in left shoulder (05/14/21) Abnormal posture (05/14/21) Weakness (05/14/21) Physical Therapy Treatment Note PT-OP-A Visit Information Start: 04/14/21 13:55 Freq: Status: Active Protocol: Document 05/14/21 09:41 [facility] (Rec: 05/14/21 09:50 OF [id number]) Out-Patient Physical Therapy Visit Information Visit Information Visit Type Treatment Note Visit Start Time 08:58 Visit Stop Time 09:40 Total Visit Minutes 42 Visit Number 5 Precautions Precautions 50$ copay PT-OP-B Current Condition Start: 04/14/21 13:55 Freq: Status: Active Protocol: Document 04/15/21 10:30 [facility] (Rec: 04/15/21 11:20 [facility] [id number]) Current Condition History of Current Condition Onset Date 6 months ago Current Complaints L shoulder History of Current Condition Pt reprots he has nver had trouble with his shoulder before then a week after his 1st COVID shot in Nov, he noticed it was painful when lifting weights and it has just gotten worse. Now his ROM is very restricted and has not been doing much. Pt is R handed. Pt notes he does a lot of things still but there is pain. ANything reaching out in front of him or overhead is painful. Pt reports his UT is pretty painful as well. Pt typically would golf a couple times a year but feels like there is no way he could do that. Prior Treatments and Tests none Treatment Goals Patient/Caregiver Goals return to wt lifting, back to where he was , be able to golf , be able to overhead and reaching activities especially house work (has to paint house and build deck) Personal Factors Other Personal Factors That May Effect neck pain, L4-5 fusion Therapy/Recovery PT-OP-C Subjective Start: 04/14/21 13:55 Freq: Status: Active Protocol: Document 05/14/21 09:41 [facility] (Rec: 05/14/21 09:50 OF [id number]) OP-PT Subjective Patient Comments Patient Comments Pt states he has been performing HEP, reduced pain with ADL Patient Reported Progress Improving OP-PT Pain Assessment Pain Assessment Grid Paper Pain Assessment Grid Completed No Location L shoulder Pain Location Details traps Intensity 2 Scale Used worst 10/10 Description Aching,Sharp,Tightness,With Movement Description- Other deep Frequency Daily Pain Alleviating Factors Cold Other Pain Alleviating Factors ibuprofen PT-OP-F Manual Assessment Start: 04/14/21 13:55 Freq: Status: Active Protocol: Document 04/15/21 10:30 [facility] (Rec: 04/15/21 11:20 [facility] [id number]) Manual Assessments Soft Tissue Assessment Soft Tissue Mobility Assessment L UT, LS, rhomboids LT, teres, infraspinatus, lats, pec tender & tight Joint Mobility Assessment Joint Mobility Assessment L 1st rib elevated PT-OP-J Posture/Palpation/Skin Start: 04/14/21 13:55 Freq: Status: Active Protocol: Document 04/15/21 10:30 [facility] (Rec: 04/15/21 11:20 [facility] [id number]) Posture Evaluation [facility] Postural Classification System [facility] Postural Classifications Posterior/Anterior Elbow Flexion Test 1 Comments Posture Comments L>R scap protraction, IR of shoulder & fwd rounding PT-OP-K Range of Motion Start: 04/14/21 13:55 Freq: Status: Active Protocol: Document 04/15/21 10:30 [facility] (Rec: 04/15/21 11:20 [facility] [id number]) Shoulder Goniometric Range of Motion Shoulder Left Passive Flexion 130 Abduction 82 External Rotation at 45 degrees 42 Abduction Internal Rotation 70 Comments IR at scap plane Right Active Flexion 155 Extension 70 Abduction 180 External Rotation at 90 degrees 121 Abduction External Rotation at 0 degrees Abduction 60 Internal Rotation Behind Back (text) T7 Left Active Flexion 74 Extension 44 Abduction 65 External Rotation at 0 degrees Abduction 31 Internal Rotation Behind Back (text) sacrum PT-OP-L Special Tests Start: 04/14/21 13:55 Freq: Status: Active Protocol: Document 04/15/21 10:30 [facility] (Rec: 04/15/21 11:20 [facility] [id number]) Special Tests Shoulder Special Tests Empty Can Test Results positive L Neer Impingement Comments positive L Speed's Biceps Test Results positive L [place] Test Test Results neg L Yergason's Biceps Test Results neg L Sulcus Test Results neg L Garcia Sunday Impingement Test Results positive L AC Joint Compression Test Results neg L Neural Special Tests- Upper Body Median Nerve Tension Comments neg but unable to go through full range d/t shoulder mobility Radial Nerve Tension Comments neg Ulnar Nerve Tension Comments neg PT-OP-M Strength Start: 04/14/21 13:55 Freq: Status: Active Protocol: Document 04/15/21 10:30 [facility] (Rec: 04/15/21 11:20 [facility] [id number]) Shoulder Strength Shoulder Manual Muscle Testing Right Flexion 5 Normal Extension 5 Normal Abduction (C5) 5 Normal Adduction 5 Normal External Rotation 5 Normal Internal Rotation 5 Normal Horizontal Abduction 5 Normal Horizontal Adduction 5 Normal Left Flexion 3+ Fair+ Extension 3+ Fair+ Abduction (C5) 2- Poor- External Rotation 4- Good- Internal Rotation 5 Normal Comments pain w/all but IR PT-OP-Q Treatments Start: 04/14/21 13:55 Freq: Status: Active Protocol: Document 05/14/21 09:41 [facility] (Rec: 05/14/21 09:50 OF [id number]) Therapeutic Exercises Supine Exercises pec stretch Side bilateral Reps/Minutes [id number] Comments 1/2 bolster AAROm Supine Exercise Name tbar: 1.chest press to flex 2. ER at side Side left Reps/Minutes 2x10 Sidelying Exercises open book Side left Comments cues for scapular control Sitting Exercises UT Sitting Exercise Name upper trap stretch Side bilateral Reps/Minutes [id number] rows Sitting Exercise Name rows Side bilateral Resistance level 3 tb Comments 3x10, cues for UT relaxed, proper recruitment for lower trap and rhomboids pullys Sitting Exercise Name flex, scaption, abd Side left Reps/Minutes 15 Comments AAROM Standing Exercises ext rot Side left Resistance 2 tb Comments cues for shldr adduction with ext rot, scapular retraction Manual Therapy Treatment Soft Tissue Mobilization UT Body Location L UT, LS, scalenes Mobilization Type Rolling,Sustained Pressure Intensity/Depth Moderate Body Position Sidelying Joint Mobilizations ribs Comments 1. 1st rib inf glide L FM GH Joint L Direction post glide, inf glide, distraction Grade II Body Position Supine Self-Care/Home Management Treatment Education Patient Education Home Exercise Program,Pain Management,Posture PT-OP-T Assessment and Plan Start: 04/14/21 13:55 Freq: Status: Active Protocol: Document 05/14/21 09:41 [facility] (Rec: 05/14/21 09:50 OF [id number]) Physical Therapy Assessment Rehab Potential Rehabilitation Potential Excellent Evaluation Complexity Number of Personal Factors/Comorbidities 1-2 Number of Body Systems Impaired 1-2 Clinical Presentation at Evaluation Stable Impairments Impairments Functional Mobility,ROM, Strength Goals activities Short Term Goal (STG) pt will be able to get dressed without increased pain STG Duration 05/15/21 Care Home Goal (LTG) Pt will be able to return to full lifting program along with 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 LTG Duration 06/15/21 ROM Short Term Goal (STG) Pt will improve AROM on L side in all planes by 15 deg to allow for greater ease w/ADLs. STG Duration 05/15/21 [employer] Livestock [employer] Goal (LTG) Pt will have full AROM of L shoulder without pain in order to allow pt to return to all typical activities without pain. LTG Duration 06/15/21 strength Short Term Goal (STG) Pt will be indep with HEP. STG Duration 05/15/21 [employer] Liv[employer] Goal (LTG) Pt will score at 5/5 w/EFT and w/all shoulder MMT in order to show improved ability to do ADLs & house work. LTG Duration 06/15/21 Quick DASH Impairment 43.18 Short Term Goal (STG) Pt will improve quick DASH score to no higher than 25 to show improved functional ability. STG Duration 05/15/21 [employer] Livestock [employer] Goal (LTG) Pt will improve quick DASH score to no higher than 5 to show improved functional ability. LTG Duration 06/15/21 Progress Towards Goals Progress Towards Goals Progressing Toward Goals Assessment Summary Assessment Eric demonstrates improved overhead movement, reduced symptoms. He has symetrical shldr flex. Added resisted ext rot as he reports painfree isometrics. He is self massaging UT and improved pain control with ice. Responded well to bolster and open book for L shoulder Physical Therapy Plan Frequency and Duration Duration of Treatment 2 months Plan of Care Start Date 04/15/21 Plan of Care End Date 06/15/21 Next Visit Focus/Plan Next Note Type Treatment Note Next Visit Plan UE & manual for mobility & PNF , foam roll for opening, prop assessment of scap & ribcage mobility, reassess resisted ext rot from HEP
--- NOTE | 2021-05-25 09:48 | PT.OTN ---
Current Diagnoses Pain in left shoulder (05/25/21) Abnormal posture (05/25/21) Weakness (05/25/21) Physical Therapy Treatment Note PT-OP-A Visit Information Start: 04/14/21 13:55 Freq: Status: Active Protocol: Document 05/25/21 08:38 [facility] (Rec: 05/25/21 09:48 [facility] [id number]) Out-Patient Physical Therapy Visit Information Visit Information Visit Type Treatment Note Visit Start Time 09:00 Visit Stop Time 09:45 Total Visit Minutes 45 Visit Number 6 Number of TRIM AND BURR OPERATOR Visits 0 PT-OP-B Current Condition Start: 04/14/21 13:55 Freq: Status: Active Protocol: Document 04/15/21 10:30 [facility] (Rec: 04/15/21 11:20 [facility] [id number]) Current Condition History of Current Condition Onset Date 6 months ago Current Complaints L shoulder History of Current Condition Pt reprots he has nver had trouble with his shoulder before then a week after his 1st COVID shot in Nov, he noticed it was painful when lifting weights and it has just gotten worse. Now his ROM is very restricted and has not been doing much. Pt is R handed. Pt notes he does a lot of things still but there is pain. ANything reaching out in front of him or overhead is painful. Pt reports his UT is pretty painful as well. Pt typically would golf a couple times a year but feels like there is no way he could do that. Prior Treatments and Tests none Treatment Goals Patient/Caregiver Goals return to wt lifting, back to where he was , be able to golf , be able to overhead and reaching activities especially house work (has to paint house and build deck) Personal Factors Other Personal Factors That May Effect neck pain, L4-5 fusion Therapy/Recovery PT-OP-C Subjective Start: 04/14/21 13:55 Freq: Status: Active Protocol: Document 05/25/21 08:38 [facility] (Rec: 05/25/21 09:48 [facility] [id number]) OP-PT Subjective Patient Comments Patient Comments Pt reports shoulder still bothers him but is getting beter. Pt was in [place] past week and had head cold so didn't do too much Patient Reported Progress Improving PT-OP-F Manual Assessment Start: 04/14/21 13:55 Freq: Status: Active Protocol: Document 04/15/21 10:30 [facility] (Rec: 04/15/21 11:20 [facility] [id number]) Manual Assessments Soft Tissue Assessment Soft Tissue Mobility Assessment L UT, LS, rhomboids LT, teres, infraspinatus, lats, pec tender & tight Joint Mobility Assessment Joint Mobility Assessment L 1st rib elevated PT-OP-J Posture/Palpation/Skin Start: 04/14/21 13:55 Freq: Status: Active Protocol: Document 04/15/21 10:30 [facility] (Rec: 04/15/21 11:20 [facility] [id number]) Posture Evaluation [facility] Postural Classification System [facility] Postural Classifications Posterior/Anterior Elbow Flexion Test 1 Comments Posture Comments L>R scap protraction, IR of shoulder & fwd rounding PT-OP-K Range of Motion Start: 04/14/21 13:55 Freq: Status: Active Protocol: Document 04/15/21 10:30 [facility] (Rec: 04/15/21 11:20 [facility] [id number]) Shoulder Goniometric Range of Motion Shoulder Left Passive Flexion 130 Abduction 82 External Rotation at 45 degrees 42 Abduction Internal Rotation 70 Comments IR at scap plane Right Active Flexion 155 Extension 70 Abduction 180 External Rotation at 90 degrees 121 Abduction External Rotation at 0 degrees Abduction 60 Internal Rotation Behind Back (text) T7 Left Active Flexion 74 Extension 44 Abduction 65 External Rotation at 0 degrees Abduction 31 Internal Rotation Behind Back (text) sacrum PT-OP-L Special Tests Start: 04/14/21 13:55 Freq: Status: Active Protocol: Document 04/15/21 10:30 [facility] (Rec: 04/15/21 11:20 [facility] [id number]) Special Tests Shoulder Special Tests Empty Can Test Results positive L Neer Impingement Comments positive L Speed's Biceps Test Results positive L Bracken Test Test Results neg L Yergason's Biceps Test Results neg L Sulcus Test Results neg L Garcia Sunday Impingement Test Results positive L AC Joint Compression Test Results neg L Neural Special Tests- Upper Body Median Nerve Tension Comments neg but unable to go through full range d/t shoulder mobility Radial Nerve Tension Comments neg Ulnar Nerve Tension Comments neg PT-OP-M Strength Start: 04/14/21 13:55 Freq: Status: Active Protocol: Document 04/15/21 10:30 [facility] (Rec: 04/15/21 11:20 [facility] [id number]) Shoulder Strength Shoulder Manual Muscle Testing Right Flexion 5 Normal Extension 5 Normal Abduction (C5) 5 Normal Adduction 5 Normal External Rotation 5 Normal Internal Rotation 5 Normal Horizontal Abduction 5 Normal Horizontal Adduction 5 Normal Left Flexion 3+ Fair+ Extension 3+ Fair+ Abduction (C5) 2- Poor- External Rotation 4- Good- Internal Rotation 5 Normal Comments pain w/all but IR PT-OP-Q Treatments Start: 04/14/21 13:55 Freq: Status: Active Protocol: Document 05/25/21 08:38 [facility] (Rec: 05/25/21 09:48 [facility] [id number]) Therapeutic Exercises Supine Exercises serratus punch Side bilateral Equipment Used 2# Reps/Minutes 2x15 Prone Exercises ext Side bilateral Equipment Used 2# B Reps/Minutes 2x8 Comments over tball Habd Side bilateral Reps/Minutes 10 Comments over tball Sidelying Exercises abd Sidelying Exercise Name to 45 deg Side left Reps/Minutes 12 Sitting Exercises rows Sitting Exercise Name rows Side bilateral Resistance level 3 tb Equipment Used standing Comments 3x10, cues for UT relaxed, proper recruitment for lower trap and rhomboids pullys Sitting Exercise Name flex, scaption, abd Side left Reps/Minutes 15 Comments AAROM Standing Exercises IR Side left Equipment Used Lvl 3 Reps/Minutes 2x10 ext rot Standing Exercise Name ER Side left Resistance 2 tb Reps/Minutes 2x10 Comments cues for shldr adduction with ext rot, scapular retraction Manual Therapy Treatment Soft Tissue Mobilization UT Body Location L UT, LS, scalenes Mobilization Type Rolling,Sustained Pressure Intensity/Depth Moderate Body Position Sidelying Joint Mobilizations ribs Comments 1. 1st rib inf glide L FM PT-OP-T Assessment and Plan Start: 04/14/21 13:55 Freq: Status: Active Protocol: Document 05/25/21 08:38 [facility] (Rec: 05/25/21 09:48 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 LTG Duration 06/15/21 ROM Short Term Goal (STG) Pt will improve AROM on L side in all planes by 15 deg to allow for greater ease w/ADLs. STG Duration 05/15/21 Senior Care Goal (LTG) Pt will have full AROM of L shoulder without pain in order to allow pt to return to all typical activities without pain. LTG Duration 06/15/21 strength Short Term Goal (STG) Pt will be indep with HEP. STG Duration 05/15/21 Senior Care Goal (LTG) Pt will score at 5/5 w/EFT and w/all shoulder MMT in order to show improved ability to do ADLs & house work. LTG Duration 06/15/21 Quick DASH Impairment 43.18 Short Term Goal (STG) Pt will improve quick DASH score to no higher than 25 to show improved functional ability. STG Duration 05/15/21 Senior Care Goal (LTG) Pt will improve quick DASH score to no higher than 5 to show improved functional ability. LTG Duration 06/15/21 Assessment Summary Assessment Pt did well with exercises today but required significant cueing for scap movement throughout as tends to IR scap and elevate w/strengthening. Improving ROM signficiantly,. Physical Therapy Plan Frequency and Duration Frequency of Treatment 1-2x/week Duration of Treatment 2 months Plan of Care Start Date 04/15/21 Plan of Care End Date 06/15/21 Next Visit Focus/Plan Next Note Type Treatment Note Next Visit Plan UE & manual for mobility & PNF , foam roll for opening, prop assessment of scap & ribcage mobility, review strengthening
--- NOTE | 2021-06-04 17:31 | PT.OTN ---
Current Diagnoses Pain in left shoulder (06/04/21) Abnormal posture (06/04/21) Weakness (06/04/21) Physical Therapy Treatment Note PT-OP-A Visit Information Start: 04/14/21 13:55 Freq: Status: Active Protocol: Document 06/04/21 09:00 [facility] (Rec: 06/04/21 09:51 [facility] [id number]) Out-Patient Physical Therapy Visit Information Visit Information Visit Type Treatment Note Visit Start Time 09:00 Visit Stop Time 09:40 Total Visit Minutes 40 Visit Number 7 Number of LINTER DRIER OPERATOR Visits 1 Precautions Precautions 50$ copay PT-OP-B Current Condition Start: 04/14/21 13:55 Freq: Status: Active Protocol: Document 04/15/21 10:30 [facility] (Rec: 04/15/21 11:20 [facility] [id number]) Current Condition History of Current Condition Onset Date 6 months ago Current Complaints L shoulder History of Current Condition Pt reprots he has nver had trouble with his shoulder before then a week after his 1st COVID shot in Nov, he noticed it was painful when lifting weights and it has just gotten worse. Now his ROM is very restricted and has not been doing much. Pt is R handed. Pt notes he does a lot of things still but there is pain. ANything reaching out in front of him or overhead is painful. Pt reports his UT is pretty painful as well. Pt typically would golf a couple times a year but feels like there is no way he could do that. Prior Treatments and Tests none Treatment Goals Patient/Caregiver Goals return to wt lifting, back to where he was , be able to golf , be able to overhead and reaching activities especially house work (has to paint house and build deck) Personal Factors Other Personal Factors That May Effect neck pain, L4-5 fusion Therapy/Recovery PT-OP-C Subjective Start: 04/14/21 13:55 Freq: Status: Active Protocol: Document 06/04/21 09:00 [facility] (Rec: 06/04/21 09:51 [facility] [id number]) OP-PT Subjective Patient Comments Patient Comments Pt reports doing better and wanting to d/c from therapy due to high co-pay. He feels he has improved and can continue at home if given exercises. Patient Reported Progress Improving PT-OP-F Manual Assessment Start: 04/14/21 13:55 Freq: Status: Active Protocol: Document 04/15/21 10:30 [facility] (Rec: 04/15/21 11:20 [facility] [id number]) Manual Assessments Soft Tissue Assessment Soft Tissue Mobility Assessment L UT, LS, rhomboids LT, teres, infraspinatus, lats, pec tender & tight Joint Mobility Assessment Joint Mobility Assessment L 1st rib elevated PT-OP-J Posture/Palpation/Skin Start: 04/14/21 13:55 Freq: Status: Active Protocol: Document 04/15/21 10:30 [facility] (Rec: 04/15/21 11:20 [facility] [id number]) Posture Evaluation [facility] Postural Classification System [facility] Postural Classifications Posterior/Anterior Elbow Flexion Test 1 Comments Posture Comments L>R scap protraction, IR of shoulder & fwd rounding PT-OP-K Range of Motion Start: 04/14/21 13:55 Freq: Status: Active Protocol: Document 04/15/21 10:30 [facility] (Rec: 04/15/21 11:20 [facility] [id number]) Shoulder Goniometric Range of Motion Shoulder Left Passive Flexion 130 Abduction 82 External Rotation at 45 degrees 42 Abduction Internal Rotation 70 Comments IR at scap plane Right Active Flexion 155 Extension 70 Abduction 180 External Rotation at 90 degrees 121 Abduction External Rotation at 0 degrees Abduction 60 Internal Rotation Behind Back (text) T7 Left Active Flexion 74 Extension 44 Abduction 65 External Rotation at 0 degrees Abduction 31 Internal Rotation Behind Back (text) sacrum PT-OP-L Special Tests Start: 04/14/21 13:55 Freq: Status: Active Protocol: Document 04/15/21 10:30 [facility] (Rec: 04/15/21 11:20 [facility] [id number]) Special Tests Shoulder Special Tests Empty Can Test Results positive L Neer Impingement Comments positive L Speed's Biceps Test Results positive L Bond Test Test Results neg L Yergason's Biceps Test Results neg L Sulcus Test Results neg L Garcia Sunday Impingement Test Results positive L AC Joint Compression Test Results neg L Neural Special Tests- Upper Body Median Nerve Tension Comments neg but unable to go through full range d/t shoulder mobility Radial Nerve Tension Comments neg Ulnar Nerve Tension Comments neg PT-OP-M Strength Start: 04/14/21 13:55 Freq: Status: Active Protocol: Document 04/15/21 10:30 [facility] (Rec: 04/15/21 11:20 [facility] [id number]) Shoulder Strength Shoulder Manual Muscle Testing Right Flexion 5 Normal Extension 5 Normal Abduction (C5) 5 Normal Adduction 5 Normal External Rotation 5 Normal Internal Rotation 5 Normal Horizontal Abduction 5 Normal Horizontal Adduction 5 Normal Left Flexion 3+ Fair+ Extension 3+ Fair+ Abduction (C5) 2- Poor- External Rotation 4- Good- Internal Rotation 5 Normal Comments pain w/all but IR PT-OP-Q Treatments Start: 04/14/21 13:55 Freq: Status: Active Protocol: Document 06/04/21 09:00 [facility] (Rec: 06/04/21 09:51 [facility] [id number]) Therapeutic Exercises Supine Exercises serratus punch Side bilateral Equipment Used 2# Reps/Minutes 2x15 Sidelying Exercises open book Side left Comments cues for scapular control Sitting Exercises pullys Sitting Exercise Name flex, scaption, abd Side left Reps/Minutes 15 Comments AAROM Standing Exercises Extension Resistance lvl 3 TB Reps/Minutes 2x10 Rows Resistance lvl 3 TB Reps/Minutes 2x10 IR Side left Equipment Used Lvl 3 Reps/Minutes 2x10 ext rot Standing Exercise Name ER Side left Resistance 2 tb Reps/Minutes 2x10 Comments cues for shldr adduction with ext rot, scapular retraction Manual Therapy Treatment Soft Tissue Mobilization UT Body Location L UT, LS, scalenes Mobilization Type Rolling,Sustained Pressure Intensity/Depth Moderate Body Position Sidelying Self-Care/Home Management Treatment Education Patient Education Home Exercise Program Other Education Added to HEP: lvl 3 TB exercises- rows, ext, ER, IR. Pec stretch in doorway, serratus punches with 3# weight, seated UT stretch, IR stretch with towel and self- STM with tennis ball to parascapular region. Pt worried about high co-pay. 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 LTG Duration 06/15/21 ROM Short Term Goal (STG) Pt will improve AROM on L side in all planes by 15 deg to allow for greater ease w/ADLs. STG Duration 05/15/21 Television Repairman Goal (LTG) Pt will have full AROM of L shoulder without pain in order to allow pt to return to all typical activities without pain. LTG Duration 06/15/21 strength Short Term Goal (STG) Pt will be indep with HEP. STG Duration 05/15/21 Long-Term Goal (LTG) Pt will score at 5/5 w/EFT and w/all shoulder MMT in order to show improved ability to do ADLs & house work. LTG Duration 06/15/21 Quick DASH Impairment 43.18 Short Term Goal (STG) Pt will improve quick DASH score to no higher than 25 to show improved functional ability. STG Duration 05/15/21 Television Repairman Goal (LTG) Pt will improve quick DASH score to no higher than 5 to show improved functional ability. LTG Duration 06/15/21 Assessment Summary Assessment Pt has less shoulder pain today and is able to complete new HEP exercises with only minor cues for cervical posture. He has 4/10 pain with ER exercise that reduces to 2 /10 if ROM is reduced. He does still have ocassional pain especially when sleeping and if working overhead so encouraged pt to work on HEP exercises and keep a follow-up appt for one month out to see how shoulder is feeling and reassess goals. See self-care section for more details. Physical Therapy Plan Frequency and Duration Frequency of Treatment 1-2x/week Duration of Treatment 2 months Plan of Care Start Date 04/15/21 Plan of Care End Date 06/15/21 Therapeutic Interventions Therapeutic Interventions Aquatic Therapy,Home Exercise Program,Joint Mobilizations, Manual Therapy,Neuromuscular Re-education,Patient/Caregiver Education,Self-Care/Home Management,Soft Tissue Mobilization,Taping, Therapeutic Activities, Therapeutic Exercises Modalities Cold Pack/Ice Massage,Electric Stimulation,Hot Packs, Infrared Therapy,Ultrasound Next Visit Focus/Plan Next Note Type Treatment Note Next Visit Plan UE & manual for mobility & PNF , foam roll for opening, prop assessment of scap & ribcage mobility, review strengthening
--- NOTE | 2021-09-20 14:55 | PT.OPDS ---
Current Diagnoses Pain in left shoulder (06/04/21) Abnormal posture (06/04/21) Weakness (06/04/21) Visit Care Team Role Provider Type Hugh Valdez MD Attending Provider Physician Family Provider Primary Care Provider Referring Provider Specialty: Internal Medicine Address: [address] [place] [address], [address], [address] Email: [email or web address] Visit Number Visit Number 7 Discharge Summary PT-OP-B Current Condition Start: 04/14/21 13:55 Freq: Status: Active Protocol: Document 04/15/21 10:30 [facility] (Rec: 04/15/21 11:20 [facility] [id number]) Current Condition History of Current Condition Onset Date 6 months ago Current Complaints L shoulder History of Current Condition Pt reprots he has nver had trouble with his shoulder before then a week after his 1st COVID shot in Nov, he noticed it was painful when lifting weights and it has just gotten worse. Now his ROM is very restricted and has not been doing much. Pt is R handed. Pt notes he does a lot of things still but there is pain. ANything reaching out in front of him or overhead is painful. Pt reports his UT is pretty painful as well. Pt typically would golf a couple times a year but feels like there is no way he could do that. Prior Treatments and Tests none Treatment Goals Patient/Caregiver Goals return to wt lifting, back to where he was , be able to golf , be able to overhead and reaching activities especially house work (has to paint house and build deck) Personal Factors Other Personal Factors That May Effect neck pain, L4-5 fusion Therapy/Recovery PT-OP-C Subjective Start: 04/14/21 13:55 Freq: Status: Active Protocol: Document 06/04/21 09:00 [facility] (Rec: 06/04/21 09:51 [facility] [id number]) OP-PT Subjective Patient Comments Patient Comments Pt reports doing better and wanting to d/c from therapy due to high co-pay. He feels he has improved and can continue at home if given exercises. Patient Reported Progress Improving PT-OP-F Manual Assessment Start: 04/14/21 13:55 Freq: Status: Active Protocol: Document 04/15/21 10:30 [facility] (Rec: 04/15/21 11:20 [facility] [id number]) Manual Assessments Soft Tissue Assessment Soft Tissue Mobility Assessment L UT, LS, rhomboids LT, teres, infraspinatus, lats, pec tender & tight Joint Mobility Assessment Joint Mobility Assessment L 1st rib elevated PT-OP-J Posture/Palpation/Skin Start: 04/14/21 13:55 Freq: Status: Active Protocol: Document 04/15/21 10:30 [facility] (Rec: 04/15/21 11:20 [facility] [id number]) Posture Evaluation [facility] Postural Classification System [facility] Postural Classifications Posterior/Anterior Elbow Flexion Test 1 Comments Posture Comments L>R scap protraction, IR of shoulder & fwd rounding PT-OP-K Range of Motion Start: 04/14/21 13:55 Freq: Status: Active Protocol: Document 04/15/21 10:30 [facility] (Rec: 04/15/21 11:20 [facility] [id number]) Shoulder Goniometric Range of Motion Shoulder Left Passive Flexion 130 Abduction 82 External Rotation at 45 degrees 42 Abduction Internal Rotation 70 Comments IR at scap plane Right Active Flexion 155 Extension 70 Abduction 180 External Rotation at 90 degrees 121 Abduction External Rotation at 0 degrees Abduction 60 Internal Rotation Behind Back (text) T7 Left Active Flexion 74 Extension 44 Abduction 65 External Rotation at 0 degrees Abduction 31 Internal Rotation Behind Back (text) sacrum PT-OP-L Special Tests Start: 04/14/21 13:55 Freq: Status: Active Protocol: Document 04/15/21 10:30 [facility] (Rec: 04/15/21 11:20 [facility] [id number]) Special Tests Shoulder Special Tests Empty Can Test Results positive L Neer Impingement Comments positive L Speed's Biceps Test Results positive L [place] Test Test Results neg L Yergason's Biceps Test Results neg L Sulcus Test Results neg L Garcia Sunday Impingement Test Results positive L AC Joint Compression Test Results neg L Neural Special Tests- Upper Body Median Nerve Tension Comments neg but unable to go through full range d/t shoulder mobility Radial Nerve Tension Comments neg Ulnar Nerve Tension Comments neg PT-OP-M Strength Start: 04/14/21 13:55 Freq: Status: Active Protocol: Document 04/15/21 10:30 [facility] (Rec: 04/15/21 11:20 [facility] [id number]) Shoulder Strength Shoulder Manual Muscle Testing Right Flexion 5 Normal Extension 5 Normal Abduction (C5) 5 Normal Adduction 5 Normal External Rotation 5 Normal Internal Rotation 5 Normal Horizontal Abduction 5 Normal Horizontal Adduction 5 Normal Left Flexion 3+ Fair+ Extension 3+ Fair+ Abduction (C5) 2- Poor- External Rotation 4- Good- Internal Rotation 5 Normal Comments pain w/all but IR PT-OP-T Assessment and Plan Start: 04/14/21 13:55 Freq: Status: Active Protocol: Document 09/20/21 14:55 [facility] (Rec: 09/20/21 14:55 [facility] [id number]) Physical Therapy Assessment Assessment Summary Assessment Pt cancelled last scheduled appts and did not schedule more. DC d/t no longer attending PT Physical Therapy Plan Discharge Physical Therapy Discharge Reasons No Longer Attending PT
== END 2021-12-07 09:47 ==
LOC: PHYS 09:00
PROVIDERS: Family Provider Internal Medicine; PCP Internal Medicine; Referring Provider Internal Medicine; Visit Provider Internal Medicine
DX: M25.512 Pain in left shoulder (principal); R53.1 Weakness; R29.3 Abnormal posture
CPT/HCPCS: 97110; 97112; 97140; 97162; 97535

== ENCOUNTER → 2021-07-22 14:59 | Outpatient (CLI) | payer OTHER, SELFPAY ==
--- NOTE | 2021-07-22 15:01 | DI.RAD.S_ITS ---
PROCEDURE: XR FOOT RT MIN 3V INDICATIONS: right foot injury TECHNIQUE: 3 views of the foot were acquired. COMPARISON: None. FINDINGS: Bones: No fractures or dislocations. No suspicious bony lesions. Soft tissues: No tibiotalar joint effusion. Achilles tendon appears normal. IMPRESSION: Right foot without acute fracture or dislocation. If there are persistent symptoms or clinical suspicion for pathology, then repeat radiographs or advanced imaging (CT, MRI or bone scan) may be considered for further evaluation. Dictated by: Humble Bullock M.D. on 07/22/2021 at 16:28 Approved by: Humble Bullock M.D. on 07/22/2021 at 16:29
== END ==
PROVIDERS: Family Provider Internal Medicine; PCP Internal Medicine; Referring Provider Internal Medicine; Visit Provider Internal Medicine
DX: S99.921A Unspecified injury of right foot, initial encounter (principal)
CPT/HCPCS: 73630

== ENCOUNTER → 2021-07-28 14:35 | Outpatient (CLI) | payer OTHER, SELFPAY ==
[2021-07-28 16:22] LABS: COVID19 -Nasal RAPID Negative (Negative)
== END ==
PROVIDERS: Family Provider Internal Medicine; PCP Internal Medicine; Visit Provider Surgery
DX: Z20.822 Contact with and (suspected) exposure to COVID-19 (principal); Z01.812 Encounter for preprocedural laboratory examination
CPT/HCPCS: 87635; C9803

== ENCOUNTER 2021-07-29 12:42 | Day surgery (SDC) | payer OTHER, SELFPAY ==
--- NOTE | 2021-07-29 | PATH_ITS ---
[facility] Accession Number: [id number] . 01 Material submitted: . colon - TRANSVERSE COLON POLYP . 02 Diagnosis: Transverse Colon Polyp: Portions of serrated lesion x3; favor sessile serrated adenoma. MRV 08/02/2021 1104 Local . 02 Electronically signed: . Nicole Wilkerson MD, Pathologist NPI- [id number] . 01 Gross description: . TRANSVERSE COLON POLYP: Received in formalin are 3 fragment(s) of slaughter, soft tissue measuring 0.3 x 0.2 x 0.2 cm to 0.3 x 0.1 x 0.1 cm submitted entirely in 1 cassette(s) /JACQUES 07/30/2021 0742 Local . 02 Pathologist provided ICD-10: Z12.11, K63.5 . 02 CPT . 693426 Performed at: [address] [facility] Cytology [address] [facility] [place], [place], [place] [id number] MD Erich Herrera MD Phone: [phone] Performed at: 02 [facility] [place] [address] [place], [place] [id number] MD Karina Jin MD Phone: [phone]
[2021-07-29 12:56] VITALS: BP 148/93; PULSE 87; RESP 16; TEMP 36.1; O2SAT 96; BMI 29.5
[2021-07-29] MEDS: LACTATED RINGERS 1,000 ML 200 ML IV (13:06)
--- NOTE | 2021-07-29 13:47 | PM.HP.1 ---
History of Present Illness History of Present Illness Date Patient Seen: 07/29/21 Time Patient Seen: 13:47 Chief complaint: SDC Narrative: The patient presents for colorectal sreening. Previous colonoscopy in the late 1989 significant for benign polyps. No personal or family history of colon cancer. On further history denies any recent gastrointestinal symptoms. No nausea, vomiting, abdominal pain, loss of appetite, unexplained weight loss, change in bowel habits, diarrhea, constipation, melena, hematochezia, or bright red blood per rectum. Patient History Medical History Acquired hypothyroidism Alcohol use disorder Essential hypertension Generalized anxiety disorder (12/02/16) Major depression in complete remission Mixed hyperlipidemia Peripheral edema (05/07/13) Right foot injury Sinusitis Surgical History S/P lumbar spinal fusion Family & Social History Social History: household members spouse Tobacco & Substance use: Smoking Status Never smoker alcohol intake current alcohol intake frequency a few times a month Substance Use Type does not use Meds Home Medications and Allergies Home Medications Medication Instructions Recorded Confirmed Type levothyroxine 50 mcg tablet 50 mcg PO QDAY #90 tab 03/19/21 07/29/21 Rx (Synthroid) losartan 100 mg tablet 100 mg PO DAILY #90 tab 03/19/21 07/29/21 Rx metoprolol succinate 100 mg 100 mg PO DAILY #90 tab 03/19/21 07/29/21 Rx tablet,extended release 24 hr Allergies Allergy/AdvReac Type Severity Reaction Status Date / Time JILLIAN Inhibitors AdvReac Mild COUGH Verified 07/29/21 12:52 [JILLIAN INHIBITORS] amlodipine [AMLODIPINE] AdvReac Mild LEG Verified 07/29/21 12:52 SWELLING VICRAL SUTURES AdvReac Mild THEY DONT Uncoded 05/27/21 14:57 DISSOLVE Exam Vital Signs (past 8 hours): - 07/29/21 12:56 Temperature 97 F L Pulse Rate 87 Respiratory Rate 16 Blood Pressure 148/93 H Pulse Oximetry 96 Oxygen Delivery Method Room Air Narrative Exam Narrative: Constitutional-he is oriented to person, place and time. No apparent distress Cardiovascular- regular rate, no peripheral edema Pulmonary-unlabored respiratory effort, no audible wheezing Abdominal-soft, non-tender, non-distended Musculoskeletal-no cyanosis or clubbing Neurological-nonfocal, normal strength throughout, Skin-warm and dry Assessment & Plan Assessment and plan (1) Personal history of colonic polyps: Status: Acute Assessment & Plan narrative: The patient requires colorectal screening and colonoscopy is recommended. Technical details were discussed. Risks, benefits, alternatives explained. Risks including but not limited to myocardial infarction, aspiration, bleeding, pain, missed lesion, incomplete examination, need for further radiographic studies, colonic perforation, and need for major abdominal surgery were discussed. All questions were answered to their satisfaction, and they are in agreement with this plan. Time Spent With Patient Critical Care time: I spent a total of [] minutes of critical care time on this patient's care today; this time is exclusive of procedural time.
[2021-07-29] MEDS: fentaNYL 250 MCG/5 ML INJ IV (13:53)
[2021-07-29] MEDS: MIDAZOLAM 5 MG/5 ML VIAL IV ×2 (13:53→14:16)
--- NOTE | 2021-07-29 14:18 | PM.OP.ENDO ---
Operative Date/Time/Diagnoses Date of procedure: 07/29/21 Time of procedure: 14:18 Pre-op diagnosis: Personal history of colonic polyps Post-op diagnosis: same Procedure & Clinicians Study performed: Colonoscopy Same procedure as scheduled: Yes Indications: Personal history of colonic polyps Surgeon: Neal Huerta Procedure Notes Procedure in detail: Medications: Conscious sedation using 10mg IV midazolam and 150mcg IV of fentanyl The history and physical was performed/updated and the patient is ASA class is 2. The procedure was discussed in detail with the patient. Potential risks complications including infection, bleeding, missed diagnosis, perforation, need for surgery, and were explained. Their questions were answered and informed consent was obtained. Patient was brought to the procedure room and placed standard monitoring equipment. The patient's vital signs were monitored continuously throughout the entire procedure. Prior to starting time-out was performed. The patient was placed in the left lateral recumbent position. Procedural sedation was administered. Examination began with a thorough inspection of the perianal area there was no evidence of fissures, fistulae, external hemorrhoids or cutaneous malignancy. The colonoscopy scope was then placed into the anal canal and was advanced to the cecum, which was identified by the ileocecal valve, the appendiceal orifice and the confluence of the taenia. The scope was then slowly withdrawn examining colon thoroughly in all directions, irrigating it of any residual stool. FINDINGS 1. 5 mm polyp within the transverse colon removed with 2. Sigmoid diverticulosis The patient tolerated the procedure well. They will be discharged once criteria are met. The prep was of good/excellent quality. The withdrawl time was * minutes. The sedation time was * minutes. Specimen(s): other (Transverse colon polyp) Complications: none Impression: Colonic polyp Post-procedure Recommendations: Colonscopy in 5 years Disposition: same day surgery
[2021-07-29 14:20] VITALS: BP 144/92; PULSE 90; RESP 18; TEMP 36.9; O2SAT 94
[2021-07-29 14:25] VITALS: BP 138/99; PULSE 443; RESP 16; O2SAT 93
[2021-07-29 14:33] VITALS: PULSE 90; RESP 13; O2SAT 96
[2021-07-29 14:36] VITALS: BP 131/84; PULSE 80; RESP 16; O2SAT 95
== END 2021-07-29 14:51 | disposition home or self-care (01) ==
PROVIDERS: Family Provider Internal Medicine; PCP Internal Medicine; Referring Provider Surgery; Visit Provider Surgery
PROC: 0DJD8ZZ Inspection of Lower Intestinal Tract, Via Natural or Artificial Opening Endoscopic (ICD-10-PCS; CPT 45378; principal; 2021-07-29 13:45)
DX: Z12.11 Encounter for screening for malignant neoplasm of colon (principal); D12.3 Benign neoplasm of transverse colon; K57.30 Diverticulosis of large intestine without perforation or abscess without bleeding; Z86.010 Personal history of colon polyps; E03.9 Hypothyroidism, unspecified; I10 Essential (primary) hypertension; E78.5 Hyperlipidemia, unspecified; Z98.1 Arthrodesis status
CPT/HCPCS: 45380; J2250; J3010

== ENCOUNTER → 2022-10-20 14:00 | Outpatient (CLI) | payer OTHER, SELFPAY ==
[2022-10-20 15:57] LABS: Influenza A - CEPHEID Flu A NEGATIVE (NEGATIVE); Influenza B - CEPHEID Flu B NEGATIVE (NEGATIVE); Respiratory Syncytial Virus Negative (Negative)
[2022-10-20 16:11] LABS: COVID-19 CEPHEID 4-PLEX PCR Negative (Negative)
== END ==
PROVIDERS: Family Provider Internal Medicine; PCP Internal Medicine; Referring Provider Nurse Practitioner Family; Visit Provider Nurse Practitioner Family
DX: J06.9 Acute upper respiratory infection, unspecified (principal); Z20.822 Contact with and (suspected) exposure to COVID-19
CPT/HCPCS: 0241U

== ENCOUNTER → 2022-11-10 09:02 | Outpatient (CLI) | payer OTHER, SELFPAY ==
[2022-11-10 13:24] LABS: Alanine Aminotransferase 39 IU/L (<50); Albumin 4.4 g/dL (3.5-5.0); Albumin Globulin Ratio 1.4 (1.0-2.8); Alkaline Phosphatase 55 U/L (38-126); Aspartate Aminotransferase 31 IU/L (17-59); BUN Creatinine Ratio 8.8 (6-22); Bilirubin Total 0.8 mg/dL (0.2-1.3); Blood Urea Nitrogen 14 mg/dL (9-20); Calcium 9.2 mg/dL (8.4-10.2); Carbon Dioxide 24 mmol/L (22-32); Chloride 99 mmol/L (98-107); Cholesterol 257 mg/dL (140-199); Estimated Glomerular Filt Rate 52 mL/min (>60); Globulin 3.2 g/dL (1.7-4.1); Glucose 102 mg/dL (70-100); HDL Cholesterol 33 mg/dL (40-60); HEMOLYSIS < 15 (0-50); LDL Cholesterol Calculated 200 mg/dL (<100); Potassium 4.3 mmol/L (3.4-5.1); Sodium 135 mmol/L (137-145); Total Protein 7.6 g/dL (6.3-8.2); Triglycerides 122 mg/dL (35-150)
[2022-11-10 13:38] LABS: Free T4, Direct Thyroxine 1.45 ng/dL (0.78-2.19)
[2022-11-10 13:52] LABS: Prostate Specific Antigen Scrn 1.68 ng/mL (0.1-4.0); Thyroid Stimulating Hormone 3.75 uIU/mL (0.47-4.68)
== END ==
PROVIDERS: Family Provider Internal Medicine; PCP Internal Medicine; Referring Provider Internal Medicine; Visit Provider Internal Medicine
DX: E03.9 Hypothyroidism, unspecified (principal); E78.2 Mixed hyperlipidemia; I10 Essential (primary) hypertension; Z86.010 Personal history of colon polyps; Z12.5 Encounter for screening for malignant neoplasm of prostate
CPT/HCPCS: 36415; 80053; 80061; 84439; 84443; G0103

== ENCOUNTER → 2022-12-15 14:44 | Outpatient (CLI) | payer OTHER, SELFPAY ==
[2022-12-15 15:33] LABS: Blood Urea Nitrogen 18 mg/dL (9-20); Calcium 9.5 mg/dL (8.4-10.2); Carbon Dioxide 26 mmol/L (22-32); Chloride 104 mmol/L (98-107); Glucose 83 mg/dL (70-100); HEMOLYSIS < 15 (0-50); Potassium 4.2 mmol/L (3.4-5.1); Sodium 140 mmol/L (137-145)
[2022-12-15 15:38] LABS: BUN Creatinine Ratio 11.3 (6-22); Estimated Glomerular Filt Rate 52 mL/min (>60)
== END ==
PROVIDERS: Family Provider Internal Medicine; PCP Internal Medicine; Referring Provider Internal Medicine; Visit Provider Internal Medicine
DX: E03.9 Hypothyroidism, unspecified (principal); I10 Essential (primary) hypertension
CPT/HCPCS: 36415; 80048

== ENCOUNTER → 2022-12-19 11:18 | Outpatient (CLI) | payer OTHER, SELFPAY ==
--- NOTE | 2022-12-19 11:19 | DI.US.S_ITS ---
PROCEDURE: US RENAL COMPLETE INDICATIONS: R/O obstruction TECHNIQUE: Real-time scanning was performed of the kidneys and bladder, with image documentation. COMPARISON: None. FINDINGS: Kidneys: Kidneys are normal in size. Right kidney measures 12.4 cm long; left kidney measures 13.9 cm long. Right renal cortical thickness is 1.6 cm; left renal cortical thickness is 1.3 cm. Renal cortical echotexture is normal. No hydronephrosis or nephrolithiasis. No suspicious solid mass lesions. Bladder: Pre-void bladder volume is 282 mL. Post-void residual is 0 mL. Pre-void images demonstrate no intraluminal masses or stones. On pre-void images, no ureteral jets are noted with color Doppler interrogation. (Of note, ureteral jets may not be detectable in up to 25% of cases due to insufficient differences in specific gravity between ureteral and bladder urine). Miscellaneous: No free pelvic fluid. IMPRESSION: Normal size kidneys with no evidence of hydronephrosis. No postvoid residual. Dictated by: Otis Couch M.D. on 12/19/2022 at 15:31 Approved by: Otis Couch M.D. on 12/19/2022 at 16:22
== END ==
PROVIDERS: Family Provider Internal Medicine; PCP Internal Medicine; Referring Provider Internal Medicine; Visit Provider Internal Medicine
DX: N28.9 Disorder of kidney and ureter, unspecified (principal)
CPT/HCPCS: 76770

== ENCOUNTER → 2022-12-30 13:56 | Outpatient (CLI) | payer OTHER, SELFPAY ==
[2022-12-30 15:19] LABS: BUN Creatinine Ratio 18.6 (6-22); Blood Urea Nitrogen 19 mg/dL (9-20); Calcium 9.6 mg/dL (8.4-10.2); Carbon Dioxide 28 mmol/L (22-32); Chloride 100 mmol/L (98-107); Estimated Glomerular Filt Rate > 60 mL/min (>60); Glucose 90 mg/dL (70-100); HEMOLYSIS < 15 (0-50); Potassium 4.7 mmol/L (3.4-5.1); Sodium 136 mmol/L (137-145)
== END ==
PROVIDERS: Family Provider Internal Medicine; PCP Internal Medicine; Referring Provider Internal Medicine; Visit Provider Internal Medicine
DX: N17.9 Acute kidney failure, unspecified (principal)
CPT/HCPCS: 36415; 80048

== ENCOUNTER → 2024-01-23 10:01 | Outpatient (CLI) | payer OTHER, SELFPAY ==
[2024-01-23 10:40] LABS: Add Manual Diff / Slide Review NO; Basophils Absolute Auto 0 /uL (0-100); Basophils Percent Auto 0.9 % (0-2); Eosinophils Absolute Auto 100 /uL (0-450); Eosinophils Percent Auto 2.2 % (2-4); Hematocrit 41.3 % (41-53); Hemoglobin 14.2 g/dL (13.5-17.5); Lymphocytes Absolute Auto 1900 /uL (1100-4500); Lymphocytes Percent Auto 41.8 % (25-40); Mean Corpuscular HGB Conc 34.4 % (30-36); Mean Corpuscular Hemoglobin 30.4 PG (26-34); Mean Corpuscular Volume 88.2 fL (80-100); Monocytes Absolute Auto 300 /uL (0-900); Monocytes Percent Auto 7.7 % (3-14); Neutrophils Absolute Auto 2100 /uL (1500-7000); Neutrophils Percent Auto 47.4 % (50-75); Platelet Count 227 X10^3/uL (150-400); Red Blood Cell Count 4.68 X10^6/uL (4.5-5.9); Red Cell Distribution Width 13.9 % (11.6-14.8); White Blood Cell Count 4.4 X10^3/uL (4.5-11.0)
[2024-01-23 11:15] LABS: Free T4, Direct Thyroxine 1.04 ng/dL (0.78-2.19)
[2024-01-23 12:06] LABS: Alanine Aminotransferase 35 IU/L (<50); Albumin 4.2 g/dL (3.5-5.0); Albumin Globulin Ratio 1.3 (1.0-2.8); Alkaline Phosphatase 59 U/L (38-126); Aspartate Aminotransferase 33 IU/L (17-59); Bilirubin Total 0.7 mg/dL (0.2-1.3); Blood Urea Nitrogen 16 mg/dL (9-20); Calcium 9.5 mg/dL (8.4-10.2); Carbon Dioxide 31 mmol/L (22-32); Chloride 102 mmol/L (98-107); Cholesterol 300 mg/dL (140-199); Estimated Glomerular Filt Rate > 60 mL/min (>60); Globulin 3.3 g/dL (1.7-4.1); Glucose 114 mg/dL (70-100); HDL Cholesterol 46 mg/dL (40-60); HEMOLYSIS < 15 (0-50); LDL Cholesterol Calculated 209 mg/dL (<100); Potassium 4.7 mmol/L (3.4-5.1); Sodium 136 mmol/L (137-145); Total Protein 7.5 g/dL (6.3-8.2); Triglycerides 225 mg/dL (35-150)
== END ==
PROVIDERS: Family Provider Internal Medicine; PCP Internal Medicine; Referring Provider Internal Medicine; Visit Provider Internal Medicine
DX: I10 Essential (primary) hypertension (principal); E78.2 Mixed hyperlipidemia; E03.9 Hypothyroidism, unspecified; D64.9 Anemia, unspecified
CPT/HCPCS: 36415; 80053; 80061; 84439; 84443; 85025

== ENCOUNTER → 2024-06-11 16:40 | Outpatient (CLI) | payer OTHER, SELFPAY ==
--- NOTE | 2024-06-11 16:41 | DI.RAD.S_ITS ---
PROCEDURE: XR CHEST 2V INDICATIONS: cough TECHNIQUE: 2 views of the chest were acquired. COMPARISON: None. FINDINGS: Surgical changes and devices: None. Lungs and pleura: Lungs are clear. No pleural effusions or pneumothorax. Mediastinum: Mediastinal contours are normal. Heart size is normal. Bones and chest wall: No suspicious bony abnormalities. Soft tissues appear unremarkable. IMPRESSION: No acute cardiopulmonary abnormality is seen. Dictated by: Declan Powers M.D. on 06/12/2024 at 10:11 Approved by: Declan Powers M.D. on 06/12/2024 at 10:11
== END ==
LOC: RAD 16:41
PROVIDERS: Family Provider Internal Medicine; PCP Internal Medicine; Referring Provider Internal Medicine; Visit Provider Internal Medicine
DX: R05.9 Cough, unspecified (principal)
CPT/HCPCS: 71046

== ENCOUNTER → 2024-06-19 11:15 | Outpatient (CLI) | payer OTHER, SELFPAY ==
[2024-06-19 12:00] LABS: Influenza A - CEPHEID Flu A NEGATIVE (NEGATIVE); Influenza B - CEPHEID Flu B NEGATIVE (NEGATIVE); Respiratory Syncytial Virus Negative (Negative)
[2024-06-19 12:01] LABS: COVID-19 CEPHEID 4-PLEX PCR Negative (Negative)
== END ==
PROVIDERS: Family Provider Internal Medicine; PCP Internal Medicine; Referring Provider Nurse Practitioner Family; Visit Provider Nurse Practitioner Family
DX: R05.1 Acute cough (principal)
CPT/HCPCS: 0241U

== ENCOUNTER → 2024-07-09 08:03 | Outpatient (CLI) | payer OTHER, SELFPAY ==
[2024-07-09 11:00] LABS: Alanine Aminotransferase 41 IU/L (<50); Albumin 3.9 g/dL (3.5-5.0); Albumin Globulin Ratio 1.3 (1.0-2.8); Alkaline Phosphatase 62 U/L (38-126); Aspartate Aminotransferase 32 IU/L (17-59); BUN Creatinine Ratio 18.6 (6-22); Bilirubin Total 0.6 mg/dL (0.2-1.3); Blood Urea Nitrogen 18 mg/dL (9-20); Calcium 9.2 mg/dL (8.4-10.2); Carbon Dioxide 27 mmol/L (22-32); Chloride 104 mmol/L (98-107); Cholesterol 180 mg/dL (140-199); Estimated Glomerular Filt Rate > 60 mL/min (>60); Globulin 2.9 g/dL (1.7-4.1); Glucose 114 mg/dL (70-100); HDL Cholesterol 49 mg/dL (40-60); HEMOLYSIS < 15 (0-50); LDL Cholesterol Calculated 110 mg/dL (<100); Sodium 137 mmol/L (137-145); Total Protein 6.8 g/dL (6.3-8.2); Triglycerides 107 mg/dL (35-150)
== END ==
PROVIDERS: Family Provider Internal Medicine; PCP Internal Medicine; Referring Provider Internal Medicine; Visit Provider Internal Medicine
DX: E78.2 Mixed hyperlipidemia (principal); I10 Essential (primary) hypertension
CPT/HCPCS: 36415; 80053; 80061

== ENCOUNTER → 2025-10-16 10:35 | Outpatient (CLI) | payer OTHER, SELFPAY ==
[2025-10-16 11:12] LABS: Alanine Aminotransferase 40 IU/L (<50); Albumin 4.6 g/dL (3.5-5.0); Albumin Globulin Ratio 1.4 (1.0-2.8); Alkaline Phosphatase 61 U/L (38-126); Blood Urea Nitrogen 16 mg/dL (9-20); Calcium 9.7 mg/dL (8.4-10.2); Carbon Dioxide 30 mmol/L (22-32); Chloride 102 mmol/L (98-107); Cholesterol 214 mg/dL (140-199); Estimated Glomerular Filt Rate > 60 mL/min (>60); Globulin 3.2 g/dL (1.7-4.1); Glucose 113 mg/dL (70-99); HDL Cholesterol 59 mg/dL (40-60); HEMOLYSIS < 15 (0-50); Potassium 4.7 mmol/L (3.4-5.1); Sodium 140 mmol/L (137-145); Total Protein 7.8 g/dL (6.3-8.2); Triglycerides 203 mg/dL (35-150)
[2025-10-16 11:28] LABS: Free T4, Direct Thyroxine 1.13 ng/dL (0.78-2.19)
[2025-10-16 11:42] LABS: Thyroid Stimulating Hormone 2.72 uIU/mL (0.47-4.68)
== END ==
PROVIDERS: Family Provider Internal Medicine; PCP Internal Medicine; Referring Provider Internal Medicine; Visit Provider Internal Medicine
DX: I10 Essential (primary) hypertension (principal); E78.2 Mixed hyperlipidemia; E03.9 Hypothyroidism, unspecified
CPT/HCPCS: 36415; 80053; 80061; 84439; 84443